=== PATIENT | female | born 1940 | race Caucasian/White ===

== ENCOUNTER 2023-06-30 09:53 | Outpatient (AMB) | payer OTHER, SELFPAY ==
--- NOTE | 2023-06-30 11:34 | MHC.OFFWIV ---
Intake Vital Signs 06/30/23 11:37 Height 5 ft 3 in Weight 112 lb BMI 19.8 BP 140/80 H Blood Pressure Location Lt brachial Position Sitting Pulse 76 Pulse Source Pulse Oximeter Temp 98.0 F Temp Source Temporal Artery Scan Pulse Oximetry (%) 97 Intake Visit Reasons: [place] [employer] Cold Symptoms (masked) Tested Neg COVID Intake Note: pt is here for c/o thick mucus in throat Patient Tobacco Use Status: Never used Tobacco Allergies penicillin G Allergy (Mild, Verified 06/30/23 11:37) Hives Do you need a note to return to daycare/school/sports/work: Yes HPI [employer] [employer] Cold Symptoms (masked) Tested Neg COVID HPI Details 82-year-old female presents to the office for a sick visit. She visited her sick brother last week and has started having symptoms of cold, weakness and congestion. He has been diagnosed with COVID subsequently. Patient has tested for times but her tests have been negative. Patient feels tired. She is traveling to [place] tomorrow. She is very reluctant to start antibiotics as she cannot tolerate the side effects. [facility] Social History Patient Tobacco Use Status: Never used Tobacco Physical Exam Vital Signs: Last Vital Signs Temp 98.0 F 06/30/23 11:37 Pulse 76 06/30/23 11:37 BP 140/80 H 06/30/23 11:37 Pulse Ox 97 06/30/23 11:37 BMI result Body Mass Index 19.8 Const General: cooperative and healthy appearing Nutritional Appearance: well nourished Orientation/consciousness: patient oriented x3 Limitations: no limitations HEENT Head: Yes normal to inspection Eyes General: appearance normal, both eyes and all related structures Neck Neck: Yes normal visual inspection Chest Chest palpation & inspection: normal palpation of entire chest wall Resp Effort & Inspection: normal respiratory effort Neuro General: patient oriented x3 Assessment & Plan Assessment & Plan (1) Cough: Code(s): R05.9 - Cough, unspecified Plan X-ray images personally reviewed by me. No infiltrate seen. Patient was advised not to make the air travel tomorrow to [place]. Since she is not taking antibiotics, I advised her to rest and increase her fluid intake. Orders: Orders XR chest 2V Today R05.9 - Cough, unspecified Coding Level of Care Code Est Pt Level 4 (44599) Diagnoses Cough R05.9
[2023-06-30 11:37] VITALS: BP 140/80; PULSE 76; TEMP 36.7; O2SAT 97; BMI 19.8
== END 2023-06-30 12:32 | disposition home or self-care (01) ==
PROVIDERS: PCP Internal Medicine; Visit Provider Internal Medicine
DX: R05.9 Cough, unspecified (principal)
CPT/HCPCS: 99214

== ENCOUNTER 2023-06-30 11:51 | Outpatient (REF) | payer OTHER, SELFPAY | END 2023-06-30 11:52 | disposition home or self-care (01) | LOC: HO.HMGCX 11:51 | PROVIDERS: PCP Internal Medicine; Visit Provider Internal Medicine | DX: R05.9 Cough, unspecified (principal) | CPT/HCPCS: 71046 ==